=== PATIENT | female | born 1975 | race Caucasian/White ===

== ENCOUNTER → 2018-12-31 | Emergency (ER) | payer MEDICAID ==
[~2018-12-31] VITALS: Ht 160 cm; Wt 88.1 kg
[~2018-12-31] MED LIST: ACETAMINOPHEN 325 MG TAB PO ONE; AZIT250T PO; CEFTRIAXONE 1 GM INJ IM ONE; IBUP-1542 PO; IBUPROFEN 600 MG TAB PO ONE; LIDOCAINE 1% (MPF) 5 ML VIAL INFIL ONE
[2018-12-31 19:09] VITALS: BP 124/59; PULSE 82; RESP 20; Ht 160 cm; Wt 88.1 kg
--- NOTE | 2018-12-31 21:00 | ERD ---
ER Documentation Chief Complaint Chief Complaint NUNEZ, fever, ST since yesterday, r back pain radiating down leg HPI 43-year-old female, presents to the emergency department, complaining of 1 day with a sore throat, headache, fever T-max 101 associated with generalized malaise and body aches. The patient denies cough, runny nose, no shortness of breath. ROS All systems reviewed and are negative except as per history of present illness. Medications Home Meds Active Scripts Ibuprofen* (Motrin*) 600 Mg Tab, 600 MG PO Q8 PRN for PAIN AND/OR INFLAMMATION, #20 TAB Prov:JOSE GUPTA MD 12/31/18 Azithromycin* (Zithromax*) 250 Mg Tablet, 250 MG PO .ZPACK DIRECTED, #6 TAB TAKE 500 MG (2 TABS) THE FIRST DAY THEN 250 MG (1 TAB) DAYS 2-5 Prov:JOSE GUPTA MD 12/31/18 Allergies Allergies: Coded Allergies: No Known Allergy (Unverified , 12/31/18) PMhx/Soc History of Surgery: Yes (c/section x2) Hx Alcohol Use: No Hx Substance Use: No Hx Tobacco Use: No Smoking Status: Never smoker Physical Exam Vitals Vital Signs Date Temp Pulse Resp B/P (MAP) Pulse Ox O2 O2 Flow FiO2 Time Delivery Rate 12/31/18 101.0 82 20 124/59 99 19:09 (80) Physical Exam Patient is in moderate distress due to fever, vital signs showed fever. EYES: PERRLA, EOMI, injected sclerae EARS: Canals clear, erythematous tympanic membranes THROAT: Erythematous oropharynx with bilateral exudates NECK: Supple, + tender cervical lymphadenopathy. Full ROM without pain or tenderness. HEART: RRR, no rubs, murmurs, clicks or gallops. LUNGS: Bilateral rhonchi to auscultation. ABDOMEN: Soft, non-tender without masses or hepatosplenomegaly. EXTREMITIES: No edema bilaterally. BACK: Full ROM, no deformity, normal back exam NEURO: Cranial nerves grossly intact, no motor or sensory deficit Results 24 hrs Current Medications Medications Dose Sig/Helio Start Time Status Last (Trade) Ordered Route PRN Stop Time Admin Dose Reason Admin Ceftriaxone 1 gm ONCE ONCE 12/31/18 DC 12/31/18 Sodium IM 21:00 12/31/18 21:15 (Rocephin) 21:03 Lidocaine 5 ml ONCE ONCE 12/31/18 DC 12/31/18 (Xylocaine INFIL 21:00 12/31/18 21:15 1% (Mpf)) 21:03 Ibuprofen 600 mg ONCE ONCE 12/31/18 DC 12/31/18 (Motrin) PO 21:00 12/31/18 21:15 21:03 325 mg ONCE ONCE 12/31/18 DC 12/31/18 Acetaminophen PO 21:00 12/31/18 21:15 (Tylenol 21:03 Tab) Procedures/MDM Differential diagnosis include but not limited to: Tonsillar/pharyngeal infection bacterial/viral/fungal, parotitis, allergies, GERD. Less likely peritonsillar abscess, retropharyngeal abscess. No signs of upper respiratory obstruction Physical examination and clinical presentation consistent most likely with acute suppurative tonsillitis. Centor criteria 4/5. During the ED course the patient remained stable. Clinical impression discussed with the patient who agrees with management. The patient is stable to be treated outpatient and will be discharged home with a Rx for antibiotic and ibuprofen. Some side effects of prescribed medications (headache, rash, nausea, vomiting, diarrhea, drowsiness, habituation, bleeding, hypertension, interactions with other medications) were reviewed. The patient was instructed to follow up with the primary care provider in the next 48h. If symptoms persist, worsen or new symptoms develop, then patient should return to the ED immediately. Disclaimer: Inadvertent spelling and grammatical errors are likely due to EHR/dictation software use and do not reflect on the overall quality of patient care. Also, please note that the electronic time recorded on this note does not necessarily reflect the actual time of the patient encounter. Departure Diagnosis: Primary Impression: Acute suppurative tonsillitis Condition: Stable Additional Instructions: Muchas samm por [facility] para mauro servicio. Esperamos que en mauro visita a la leta de emergencia mauro problema medico haya sido solucionado y que se sienta mucho mejor. Para estar seguros que mauro mejoria sigue en proceso, le pedimos el favor de hacer jennifer yazan de seguimiento medico con mauro doctor primario en los proximos 2-4 mcleod. Lleve con usted estos documentos y las medicinas recetadas. Si bunny sintomas empeoran, NO SE ESPERE, por favor regrese a leta de emergencia INMEDIATAMENTE. En nils que usted no tenga un mdico de atencin primaria: Llame al mdico o clnica comunitaria de referencia que aparece abajo jb las horas de consultorio para hacer jennifer yazan para que le vean. CLINICAS: [facility] [phone] [facility] [phone] [facility] [phone] [facility]. [facility] [phone] [facility]. [facility] [phone] [facility] [phone] JOSE BECKER MD Dec 31, 2018 21:00
== END | disposition home or self-care (01) ==
LOC: FTE 19:01
DX: J03.90 Acute tonsillitis, unspecified (principal)
CPT/HCPCS: 93005; 96372; J0696; Z7502; Z7610

== ENCOUNTER 2019-04-08 18:54 | Emergency (ER) | payer SELFPAY ==
[~2019-04-08] VITALS: Ht 162.6 cm; Wt 94.1 kg
[~2019-04-08 18:54] MED LIST changes: -ACETAMINOPHEN 325 MG TAB PO ONE; -CEFTRIAXONE 1 GM INJ IM ONE; -IBUPROFEN 600 MG TAB PO ONE; -LIDOCAINE 1% (MPF) 5 ML VIAL INFIL ONE
[2019-04-08 19:15] VITALS: Ht 162.6 cm; Wt 94.1 kg
[2019-04-08] MEDS ORDERED: IBUPROFEN 600 MG TAB PO ONE (20:00)
[2019-04-08] MEDS ORDERED: NAPR-985 PO (21:36)
[2019-04-08 22:13] VITALS: BP 117/75; PULSE 70; RESP 18
--- NOTE | 2019-04-10 01:23 | ERD ---
ER Documentation Chief Complaint Chief Complaint R foot pain after ground level fall yesterday HPI 43-year-old female presents emergency department complaining of constant, 7/10 severity, right foot pain after injury yesterday. She states she was walking and accidentally hit her foot against a concrete curb. She tried no medication for relief of symptoms. She denies any head injury, loss of consciousness, or other symptoms or injuries at this time. ROS All systems reviewed and are negative except as per history of present illness. Medications Home Meds Active Scripts Naproxen* (Naprosyn*) 500 Mg Tablet, 500 MG PO BID PRN for PAIN AND/OR INFLAMMATION, #30 TAB Prov:EARLE VELA PA-C 04/08/19 Ibuprofen* (Motrin*) 600 Mg Tab, 600 MG PO Q8 PRN for PAIN AND/OR INFLAMMATION, #20 TAB Prov:JOSE GUPTA MD 12/31/18 Azithromycin* (Zithromax*) 250 Mg Tablet, 250 MG PO .ZPACK DIRECTED, #6 TAB TAKE 500 MG (2 TABS) THE FIRST DAY THEN 250 MG (1 TAB) DAYS 2-5 Prov:JOSE GUPTA MD 12/31/18 Allergies Allergies: Coded Allergies: No Known Allergy (Unverified , 12/31/18) PMhx/Soc History of Surgery: Yes (c/section x2) Hx Alcohol Use: No Hx Substance Use: No Hx Tobacco Use: No Smoking Status: Never smoker FmHx Family History: No diabetes Physical Exam Vitals Vital Signs Date Temp Pulse Resp B/P (MAP) Pulse Ox O2 O2 Flow FiO2 Time Delivery Rate 04/08/19 97.9 70 18 117/75 99 22:13 (89) 04/08/19 98.2 64 16 116/58 99 19:15 (77) Physical Exam Const: No acute distress Head: Atraumatic Eyes: Normal Conjunctiva ENT: Normal External Ears, Nose and Mouth. Neck: Full range of motion. No meningismus. Resp: No respiratory distress. Skin: No petechiae or rashes Back: No midline or flank tenderness Ext: Ecchymosis with associated tenderness palpation and edema noted over the right third, fourth, fifth metatarsals of the right foot. No obvious deformity or open fracture. 2+ pedal pulses noted. Patient neurovascularly intact to the right foot. Neur: Awake and alert Psych: Normal Mood and Affect Results 24 hrs Current Medications Medications Dose Sig/Helio Start Time Status Last (Trade) Ordered Route PRN Stop Time Admin Dose Reason Admin Ibuprofen 600 mg ONCE ONCE 04/08/19 DC 04/08/19 (Motrin) PO 20:00 04/08/19 20:01 20:01 [place] [address] Radiology Main Line: [phone] DIAGNOSTIC IMAGING REPORT Patient: ELAZ ALCAZAR : 1975 Age: 43 Sex: F MR #: [id number] DOS: 04/08/19 0000 Ordering MD: EARLE VELA PA-C Location: [facility] Room/Bed: PROCEDURE: XR right foot. CLINICAL INDICATION: Right foot pain following injury TECHNIQUE: AP, lateral and oblique views of the right foot were obtained. COMPARISON: None. FINDINGS: Mineralization is within normal limits. Abnormal lucency courses obliquely through the fourth proximal phalanx compatible with an acute, closed, nondispla jose extra-articular fracture. No additional fractures are noted. A tiny plantar calcaneal spur is present. There is no evidence for dislocation. Joint spaces are preserved. The soft tissues are unremarkable. There is no evidence for radiopaque foreign body. RPTAT:HJJR IMPRESSION: 1. Acute, closed, nondisplaced extra-articular spiral type fracture through the fourth proximal phalanx of the right foot. 2. Incidental tiny plantar calcaneal spur. Physician Gabe Date Time Electronically viewed and signed by Physician Gabe on 04/08/2019 21:21 JR/ CC: EARLE VELA PA-C [id number] Procedures/MDM 43-year-old female presents to the emergency department for fracture of the right foot. X-ray interpreted by the radiologist may be viewed above. Patient required splint for immobilization of fracture.Splint Assessment: Neurovascularly intact post splint placement with good fit. Patient's extremity symptoms have stabilized while they have been evaluated in the department and are appropriate for outpatient follow up. No evidence of compartment syndrome, neurologic injury, vascular injury, open joint, open fracture, tendon laceration, or foreign body. Patient advised to follow-up with orthopedic physician within the next 24 to 48 hours. She understands and agrees with the diagnosis, plan, need for follow-up, return precautions. Departure Diagnosis: Primary Impression: Fracture of right foot Encounter type: initial encounter Fracture type: closed Qualified Codes: S92.901A - Unspecified fracture of right foot, initial encounter for closed fracture Condition: Fair Patient Instructions: Fracture, Foot [facility]errals[facility] Usted se moore hecho un examen mdico de control que le indica que no est en jennifer condicin que requiera tratamiento urgente en el Departamento de Emergencia. Un estudio ms profundo y el tratamiento de douglas condicin pueden esperar sin ningn riesgo hasta que usted sea atendida/o en el consultorio de douglas mdico o jennifer clnica. Es responsabilidad suya arreglar jennifer yazan para el seguimiento del nils. MANEJO DE CONDICIONES NO URGENTES EN EL FUTURO 1) Si usted tiene un mdico de atencin primaria: Usted debera llamar a douglas mdico de atencin primaria antes de venir al departamento de emergencia. Despus de las horas de consultorio, douglas doctor o douglas asociado/a est disponible por telfono. El mdico o enfermero de yuval en el servicio telefnico puede asesorarle por jose medio para atender el problema, o nils contrario se puede programar jennifer yazan. 2) Si usted no tiene un mdico de atencin primaria: Llame al mdico o clnica de referencia que aparece abajo jb las horas de consultorio para hacer jennifer yazan para que le vean. CLINICAS: [facility] [phone] [place] [address] [phone] [place] [address] [phone] [place] [address] [phone] [place] [address] [phone] [facility] [phone] [facility] YOU HAVE RECEIVED A MEDICAL SCREENING EXAM AND THE RESULTS INDICATE THAT YOU DO NOT HAVE A CONDITION THAT REQUIRES URGENT TREATMENT IN THE EMERGENCY DEPARTMENT. FURTHER EVALUATION AND TREATMENT OF YOUR CONDITION CAN WAIT UNTIL YOU ARE SEEN IN YOUR DOCTORS OFFICE WITHIN THE NEXT 1-2 DAYS. IT IS YOUR RESPONSIBILITY TO MAKE AN APPOINTMENT FOR FOLOW-UP CARE. IF YOU HAVE A PRIMARY DOCTOR --you should call your primary doctor and schedule an appointment IF YOU DO NOT HAVE A PRIMARY DOCTOR YOU CAN CALL OUR PHYSICIAN REFERRAL HOTLINE AT IF YOU CAN NOT AFFORD TO SEE A PHYSICIAN YOU CAN CHOSE FROM THE FOLLOWING [facility] [phone] [facility] [phone] [facility] [phone] [facility] [phone] [facility] [address] [facility]. [facility] [address] [facility] Urgent Care 7 a.m.- 11 p.m. Every Day of the Week NO APPOINTMENT OR AUTHORIZATION NEEDED [facility] Hours: Mon-Fri 9:00 AM - 5:00 PM Additional Instructions: Specialist:Usted tiene jennifer condicin mdica que requiere que bobo a un especialista dentro de los prximos 1-2 castillo.POR FAVOR,CON DOUGLAS SEGUIMIENTO DE PRIMARIA PHSICIAN refferal. SI USTED NO TIENE UN MDICO GENERAL Y / O USTED NO PUEDE PAGAR jhony a un mdico,los siguientes koch RECURSOS sido suministrado a usted. ES DOUGLAS RESPONSABILIDAD PARA SER VISTOS POR EL ESPECIALISTA:ORTHOPEDICS EARLE VELA PA-C Apr 10, 2019 01:23
== END 2019-04-08 22:14 | disposition home or self-care (01) ==
LOC: FTE 18:54
DX: S92.901A Unspecified fracture of right foot, initial encounter for closed fracture (principal); W01.198A Fall on same level from slipping, tripping and stumbling with subsequent striking against other object, initial encounter; Y92.9 Unspecified place or not applicable
CPT/HCPCS: 73630; 99283; L3260